=== PATIENT | female | born 1990 | race American Indian/Alaskan Native ===

== ENCOUNTER 2016-12-03 23:56 | Emergency (ER) | payer MEDICAID, OTHER ==
[2016-12-04 00:15] VITALS: BP 107/67; RESP 20
--- NOTE | 2016-12-04 00:57 | C.PDOC ---
History Of Present Illness 26 yo female come in for evaluation of sudden onset of N/V/D today around 4PM after eating [place]. Pt sts, had 4-5 episodes of non-bloody vomiting and 3-4 episodes of watery diarrhea associated with diffuse lower abdominal cramping pain. Otherwise, denies fever, chills, drooling, dysphagia, dyspnea, hematemesis , melena, hematoschezia, back pain. Ambulate to Ed for evaluation, not in any apparent distress. Pt accompanied by family member who has same complaints. Time Seen by Provider: 12/04/16 00:14 Chief Complaint (Nursing): Abdominal Pain History Per: Patient Onset/Duration Of Symptoms: Gradual Current Symptoms Are (Timing): Still Present Past Medical History Reviewed: Historical Data, Nursing Documentation, Vital Signs Vital Signs: Last Vital Signs Temp 97.9 F 12/04/16 01:55 Pulse 80 12/04/16 01:55 Resp 20 12/04/16 01:55 BP 107/67 12/04/16 00:10 Pulse Ox 99 12/04/16 01:55 - Medical History PMH: HTN Family History: States: No Known Family Hx - Social History Hx Alcohol Use: No Hx Substance Use: No - Immunization History Hx Tetanus Toxoid Vaccination: No Hx Influenza Vaccination: No Hx Pneumococcal Vaccination: No Review Of Systems Except As Marked, All Systems Reviewed And Found Negative. Constitutional: Negative for: Fever, Chills ENT: Negative for: Ear Discharge, Throat Pain, Throat Swelling Respiratory: Negative for: Cough Gastrointestinal: Positive for: Nausea, Vomiting, Abdominal Pain, Diarrhea. Negative for: Melena, Hematochezia, Hematemesis Genitourinary: Negative for: Incontinence Musculoskeletal: Negative for: Neck Pain, Back Pain Neurological: Negative for: Weakness, Numbness, Altered Mental Status, Headache , Dizziness Physical Exam - Physical Exam Appears: Well, Non-toxic, No Acute Distress Skin: Normal Color, Warm, No Rash Eye(s): bilateral: PERRL Throat: No Erythema, No Drooling Neck: Supple Cardiovascular: Rhythm Regular Respiratory: No Decreased Breath Sounds, No Accessory Muscle Use, No Stridor, No Wheezing Gastrointestinal/Abdominal: Bowel Sounds (normal), Soft, Tenderness (mild diffuse lower), No Organomegaly, No Distention, No Guarding, No Rebound Back: No CVA Tenderness Extremity: No Pedal Edema Neurological/Psych: Oriented x3, Normal Speech ED Course And Treatment O2 Sat by Pulse Oximetry: 100 Pulse Ox Interpretation: Normal Progress Note: On re-evaluation, pt is afebrile, hemodynamiclay stable. Non- toxic. Pt was given PO challenge, tolerate well in ED. PulseOx 99% RA. neck: Supple. ENT: No acute findings. Lungs: CTA B/L, BS equal B/L. Abd: benign, (- ) guaridng, (-) rebound, (-) localized tenderness. back: (-) CVA tenderness. Pt has clinical findings c/w vomiting, diarrhea . Advised on diet restriction. ref. to f/u with PMD in 1-2 dyas for re-eval. return to ED if any worsening or new changes. Disposition Counseled Patient/Family Regarding: Diagnosis, Need For Followup - Disposition Disposition: HOME/ ROUTINE Disposition Time: 01:45 Condition: STABLE Additional Instructions: Encourage fluids Diet restriction for 1-2 days take medication as prescribed as need Follow up with Wet Process Technician in 2-3 days for re-evaluation. Return to ED if any worsening or new changes. Prescriptions: Famotidine [Pepcid] 20 mg PO BID #10 tab Ondansetron ODT [Zofran ODT] 1 odt PO BID PRN #6 odt PRN Reason: Nausea/Vomiting Instructions: Gastroenteritis (ED) Forms: [employer] (Faroese) - Clinical Impression Clinical Impression: Vomiting, Diarrhea
[2016-12-04 01:55] VITALS: PULSE 80; TEMP 97.9
[2016-12-04 03:20] VITALS: O2SAT 100
== END 2016-12-04 02:06 | disposition home or self-care (01) ==
LOC: C.ER 23:56
DX: R11.10 Vomiting, unspecified (principal); R19.7 Diarrhea, unspecified

== ENCOUNTER 2017-09-04 07:53 | Emergency (ER) | payer OTHER ==
[2017-09-04 08:17] VITALS: BMI 32.6
[2017-09-04 08:20] VITALS: BP 140/84; PULSE 87; RESP 18; TEMP 98.5; O2SAT 95
--- NOTE | 2017-09-04 09:01 | C.PDOC ---
History Of Present Illness 26yo female, presents to ED with her son for evaluation of a dry cough, congestion and a tactile fever for the past 2 days. She denies any chest pain, shortness of breath, abdominal pain. Patient offers no other medical complaints. Time Seen by Provider: 09/04/17 08:38 Chief Complaint (Nursing): Cough, Cold, Congestion History Per: Patient History/Exam Limitations: no limitations Onset/Duration Of Symptoms: Days (2) Current Symptoms Are (Timing): Still Present Location Of Pain: Sinus/es Sick Contacts (Context): Family Member(s) (son) Associated Symptoms: Fever (tactile), Cough, Nasal Congestion Additional History Per: Patient Past Medical History Reviewed: Historical Data, Nursing Documentation, Vital Signs Vital Signs: Last Vital Signs Temp 98.5 F 09/04/17 08:17 Pulse 87 09/04/17 08:17 Resp 18 09/04/17 08:17 BP 140/84 09/04/17 08:17 Pulse Ox 95 09/04/17 11:07 - Medical History PMH: HTN Surgical History: No Surg Hx Family History: States: Unknown Family Hx - Social History Hx Alcohol Use: No Hx Substance Use: No - Immunization History Hx Tetanus Toxoid Vaccination: No Hx Influenza Vaccination: No Hx Pneumococcal Vaccination: No Review Of Systems Except As Marked, All Systems Reviewed And Found Negative. Constitutional: Positive for: Fever ENT: Positive for: Nose Congestion Cardiovascular: Negative for: Chest Pain Respiratory: Positive for: Cough. Negative for: Shortness of Breath Gastrointestinal: Negative for: Abdominal Pain Physical Exam - Physical Exam Appears: Non-toxic, No Acute Distress Skin: Normal Color, Warm, Dry Head: Atraumatic, Normacephalic Eye(s): bilateral: Normal Inspection, PERRL Nose: Normal, No Discharge Oral Mucosa: Moist Throat: Normal, No Erythema, No Exudate Neck: Normal ROM, Supple Chest: Symmetrical Cardiovascular: Rhythm Regular Respiratory: Normal Breath Sounds, No Wheezing Gastrointestinal/Abdominal: Normal Exam, Soft, No Tenderness Back: Normal Inspection Extremity: Normal ROM, No Deformity Neurological/Psych: Oriented x3 ED Course And Treatment O2 Sat by Pulse Oximetry: 95 (RA) Pulse Ox Interpretation: Normal Progress Note: Patient with well exam and is stable for discharge home. Patient given prescription for Bromfed, flonase and motrin and instructed to follow up with PCP in 2-3 days. Disposition - Disposition Disposition: HOME/ ROUTINE Disposition Time: 08:58 Condition: STABLE Additional Instructions: Follow up with PMD within 1-2 days. Return to ER if feel worse. Prescriptions: Brompheniramine/Pseudoephed/Dm [Bromfed Dm Cough 118 ml] 10 ml PO Q4 #300 ml Fluticasone Nasal [Flonase] 1 spr NS BID #1 spr Ibuprofen [Motrin Tab] 600 mg PO Q8 #30 tab Instructions: Upper Respiratory Infection (ED) Forms: [employer] (Tajik) - Clinical Impression Clinical Impression: Upper respiratory infection - PA / MATERIALS INSPECTOR / Resident Statement MD/DO has reviewed & agrees with the documentation as recorded. - Scribe Statement The provider has reviewed the documentation as recorded by the Scribe (Rubina Langford) Provider Attestation: All medical record entries made by the Scribe were at my direction and personally dictated by me. I have reviewed the chart and agree that the record accurately reflects my personal performance of the history, physical exam, medical decision making, and the department course for this patient. I have also personally directed, reviewed, and agree with the discharge instructions and disposition.
== END 2017-09-04 09:00 | disposition home or self-care (01) ==
LOC: C.ER 07:53
DX: J06.9 Acute upper respiratory infection, unspecified (principal)

== ENCOUNTER 2017-10-04 09:58 | Emergency (ER) | payer OTHER ==
[2017-10-04 09:58] VITALS: BMI 32.6
[2017-10-04] MEDS ORDERED: Sodium Chloride 0.9% 1,000 ML IV ONE (10:34)
[2017-10-04 10:50] LABS: BASO % 0.3 % (0.0-2.0); EOS % 0.3 % (0.0-4.0); HEMOGLOBIN 13.6 g/dL (11.0-16.0); LYMPH # 1.3 K/uL (1.0-4.3); LYMPH % 15.9 % (20.0-40.0); MEAN CORPUSCULAR HEMOGLOBIN 33.1 pg (27.0-31.0); MEAN CORPUSCULAR HGB CONC 35.3 g/dL (33.0-37.0); MONO # 0.5 K/uL (0.0-0.8); MONO % 6.2 % (0.0-10.0); NEUT # 6.3 K/uL (1.8-7.0); NEUT % 77.3 % (50.0-75.0); RBC 4.1 Mil/uL (3.80-5.20); WHITE BLOOD COUNT 8.2 K/uL (4.8-10.8)
[2017-10-04 10:58] LABS: HCG,QUALITATIVE URINE NEGATIVE (NEGATIVE)
[2017-10-04 11:02] LABS: SQUAMOUS EPITHIAL 1 /hpf (0-5); URINE BILIRUBIN NEGATIVE (NEGATIVE); URINE BLOOD NEGATIVE (NEGATIVE); URINE CLARITY Clear (Clear); URINE COLOR Yellow (YELLOW); URINE GLUCOSE (UA) NORMAL (Normal); URINE LEUKOCYTE ESTERASE NEG Leu/uL (Negative); URINE PROTEIN NEGATIVE (NEGATIVE)
[2017-10-04] MEDS ORDERED: Sodium Chloride 0.9% 1,000 ML ONE (11:02)
[2017-10-04 11:04] LABS: ALB/GLOB RATIO 1.3 (1.0-2.1); ALBUMIN 4.4 g/dL (3.5-5.0); ALT/SGPT 34 U/L (9-52); AST/SGOT 34 U/L (14-36); BLOOD UREA NITROGEN 11 mg/dL (7-17); CALCIUM 9.5 mg/dl (8.6-10.4); GFR AFRICAN-AMERICAN > 60; GFR NON-AFRICAN AMERICAN > 60
--- NOTE | 2017-10-04 11:04 | C.PDOC ---
History Of Present Illness 26 y/o female presents to ED for evaluation of weakness, lightheadedness and low abdominal pain gradually developed yesterday. Patient states she had IUD placed on 06/2017 and "since then I have been experiencing abdominal discomfort and bleeding non stop ". Otherwise, Patient denies recent illness, severe headache, vertigo, visual changes, neck pain, sore throat, sob, chest pain, palpitations, cough, nausea, vomiting , diarrhea, UTI sx, denies lower legs pain No risk factors for DVT or PE. Ambulate to ED for evaluation, not in nay apparent distress. Time Seen by Provider: 10/04/17 10:28 Chief Complaint (Nursing): Dizziness/Lightheaded History Per: Patient History/Exam Limitations: no limitations Onset/Duration Of Symptoms: Days Current Symptoms Are (Timing): Still Present Past Medical History Reviewed: Historical Data, Nursing Documentation, Vital Signs Vital Signs: Last Vital Signs Temp 99.4 F 10/04/17 13:27 Pulse 57 L 10/04/17 13:27 Resp 18 10/04/17 13:27 BP 130/81 10/04/17 13:27 Pulse Ox 100 10/04/17 13:27 - Medical History PMH: HTN Surgical History: No Surg Hx Family History: States: No Known Family Hx - Social History Hx Alcohol Use: No Hx Substance Use: No - Immunization History Hx Tetanus Toxoid Vaccination: No Hx Influenza Vaccination: No Hx Pneumococcal Vaccination: No Review Of Systems Constitutional: Negative for: Fever, Chills Cardiovascular: Positive for: Light Headedness. Negative for: Chest Pain, Palpitations Gastrointestinal: Negative for: Nausea, Vomiting Neurological: Positive for: Weakness Physical Exam - Physical Exam Appears: Well, Non-toxic, No Acute Distress Skin: Warm, Dry, No Rash Head: Normacephalic Eye(s): bilateral: PERRL Nose: No Flaring, No Discharge Oral Mucosa: Moist, No Drooling Throat: No Erythema, No Drooling Neck: Trachea Midline, Supple Cardiovascular: Rhythm Regular, No Murmur, No JVD Respiratory: No Decreased Breath Sounds, No Accessory Muscle Use, No Rales, No Rhonchi, No Stridor, No Wheezing Gastrointestinal/Abdominal: Soft, Tenderness (mild suprapubic), No Guarding, No Rebound Back: No CVA Tenderness Extremity: Normal ROM, No Calf Tenderness (B/L), No Swelling Neurological/Psych: Oriented x3, Normal Speech, Normal Cognition ED Course And Treatment - Laboratory Results Result Diagrams: 10/04/17 10:42 10/04/17 10:42 Lab Interpretation: Normal Urine POC: Negative ECG: Interpreted By Me, Viewed By Me ECG Rhythm: Sinus Rhythm ECG Interpretation: Normal Interpretation Of ECG: Sinus mukesh@52/min, NAD, T wave inverion in IIIm V2-3, no acute ST-T Changes. O2 Sat by Pulse Oximetry: 98 (RA) Pulse Ox Interpretation: Normal - Radiology CXR: Interpreted by Me, Viewed By Me, Read By Radiologist CXR Interpretation: Yes: No Acute Disease Progress Note: On re-eval, pt is afebrile, hemodynamicaly stable. NOn-toxic. Pt reports, moderate improvement in sx. AMbulatory in ED with stable gait. PulsEOx 98% RA. ENT: no acute findings. neck: Supple, (-) JVD, (-) carotid bruits B/L. Lungs: CTA B/L, BS equal B/L. CVS: (+)S1S2, reg. ABd: benign, (- ) guarding, (-) rebound, (-) localized tenderness. B/L legs (-) calf tenderness. Neurologicaly intact. Bood work review, no acute finidngs. UA(-) , preg (-). EKG, CXR- normal study. Pt has clinical findings c/w dizziness, nos. Pt is currently asymptomatic. Pt advised. ref. to f/u with PMD in 2-3 days for re-evaluation. return magalys ED if any worsening or new changes. Disposition Counseled Patient/Family Regarding: Studies Performed, Diagnosis, Need For Followup, Rx Given - Disposition Referrals: [facility] [Outside] Disposition: HOME/ ROUTINE Disposition Time: 12:23 Condition: STABLE Additional Instructions: Encourage fluids Follow up with PMD, DECK ENGINE OPERATOR In 2-3 days for re-evaluation. return to ED if any worsening or new changes. Instructions: Dizziness, Nonvertigo, (DC) Forms: [employer] (Thai), Work Excuse - Clinical Impression Clinical Impression: Dizziness - PA / TOOL ROOM ATTENDANT / Resident Statement MD/DO has reviewed & agrees with the documentation as recorded. - Scribe Statement The provider has reviewed the documentation as recorded by the Osito Dorantes All medical record entries made by the Osito were at my direction and personally dictated by me. I have reviewed the chart and agree that the record accurately reflects my personal performance of the history, physical exam, medical decision making, and the department course for this patient. I have also personally directed, reviewed, and agree with the discharge instructions and disposition.
[2017-10-04 11:08] LABS: BARBITURATES, UR NEGATIVE (NEGATIVE); BENZODIAZEPINES, UR NEGATIVE (NEGATIVE); OPIATES, UR NEGATIVE (NEGATIVE); PHENCYCLIDINE, UR NEGATIVE (NEGATIVE)
[2017-10-04] MEDS ORDERED: DiphenhydrAMINE 50 mg/ml Inj IVP STA (11:28)
[2017-10-04] MEDS ORDERED: DiphenhydrAMINE 50 mg/ml Inj ONE (12:33)
[2017-10-04 13:29] VITALS: BP 130/81; PULSE 57; RESP 18; TEMP 99.4
[2017-10-04 18:16] VITALS: O2SAT 98
--- NOTE | 2017-10-07 05:49 | CARD ---
APPROVED REPORT EKG Measurement Heart [id number] <Conclusion> Sinus bradycardia Nonspecific intraventricular block with IRBBB pattern T wave abnormality, consider anterior ischemia Abnormal ECG
== END 2017-10-04 13:28 | disposition home or self-care (01) ==
LOC: C.ER 09:58
DX: R42 Dizziness and giddiness (principal); I10 Essential (primary) hypertension
CPT/HCPCS: 80053; 80324; 80345; 80346; 80349; 80353; 80358; 80361; 81001; 83992; 84703; 85025; 96361; 96374; 96375; 99285; J1200; J1885; J7030